=== PATIENT | male | born 1960 | race Caucasian/White ===

== ENCOUNTER 2018-03-12 08:13 | Emergency (ER) | payer OTHER ==
[~2018-03-12] VITALS: Ht 177.8 cm; Wt 104.0 kg
[~2018-03-12 08:13] MED LIST: CARV3.122 PO; CYCL10TA6 PO; HYDR1TAB2 PO; METH4PAK4 PO; OXYC7.5T78 PO; PRLSR20 PO
[2018-03-12 08:17] VITALS: TEMP 36.6; Ht 177.8 cm; Wt 104.0 kg
[2018-03-12] MEDS ORDERED: HYDROCODONE/ACETAMIN 5/325MG TAB PO STA (08:40)
--- NOTE | 2018-03-12 08:46 | EMERGENCY ROOM VISIT NOTE ---
ED Visit Note First contact with patient: 08:25 CHIEF COMPLAINT: Left knee pain HISTORY OF PRESENT ILLNESS: This 57-year-old male presents to ER with chief complaint of left knee pain. The patient is already under the care of orthopedic physician, Dr. Henley from [facility]. He currently has him on steroids. He performed an x-ray and ultrasound and did blood work. He is scheduled for an MRI on Tuesday. He has a follow-up appointment after the MRI with his orthopedic surgeon. The patient is requesting that his MRI be performed today due to the pain. He is currently only taking Aleve twice a day. He is on no other pain medications. He states his pain at rest is 6 out of 10 and with weightbearing it is 10 out of 10. The patient admits to locking of the knee but denies any giving out of the knee. The patient works at [employer] and is on his feet all day. REVIEW OF SYSTEMS: 6 system review was performed and was negative unless stated otherwise in history of present illness. PMH: The patient is healthy; hypertension, appendectomy, GERD SOCIAL HISTORY: Patient lives with his . The patient denies any tobacco or alcohol use. PHYSICAL EXAM: Vital Signs: Were reviewed reviewed Nurse's notes. General: 57- year-old male appears in no acute distress. MENTAL STATUS: Alert, oriented, and cooperative. LEFT KNEE: The affected knee is tender over the medial joint space. Lateral joint space is non-tender.. There is no joint effusion. Patient has full range of motion. Ligament instability noted. EMERGENCY DEPARTMENT COURSE: I discussed with the patient that getting the MRI today is not to move up his course of treatment because he already has a follow- up appointment scheduled with his orthopedic doctor to review his MRI and at that point the orthopedic surgeon will decide whether or not he needs surgery. The patient verbalized understanding. I told him I was willing to provide him pain control for the next several days. He was given [place] 5/325 mg 2 tablets while in the ER. The patient was discharged home in stable condition. DIAGNOSIS: Left knee pain DISCHARGE INSTRUCTIONS: Continue Aleve. Also take [place] 5/325 mg as directed for pain. Do not drive while taking the [place]. Off work for 2 days. Keep scheduled appointment for MRI and follow-up orthopedic appointment. Problem List Medical Problems: (1) Appendectomy Status: Resolved (2) Benign hypertension Status: Chronic Current/Historical Medications Scheduled Carvedilol (Coreg), 3.125 MG PO BID Methylprednisolone Dosepak (Medrol Dosepak), 0 PO DAILY Omeprazole (Prilosec), 20 MG PO DAILY Scheduled PRN Cyclobenzaprine Hcl (Flexeril), 10 MG PO Q8 PRN Hydrocodone/Acetaminophen 5MG/500MG (Lortab 5MG/500MG), 1-2 TABLET PO Q6 PRN Oxycodone/Acetaminophen 5MG/325MG (Percocet 5MG/325MG), 2 TABLETS PO Q6H PRN Allergies Coded Allergies: No Known Allergies (Unverified , 05/23/13) Vital Signs Date Time Temp Pulse Resp B/P (MAP) Pulse Ox O2 Delivery O2 Flow Rate FiO2 03/12/18 08:17 36.6 83 18 165/99 97 Room Air Departure Information Referrals No Doctor, Assigned (PCP) [facility] Instructions [facility]
[2018-03-12] MEDS ORDERED: HYDR-5688 PO (08:47)
[2018-03-12 09:06] VITALS: BP 150/116; PULSE 68; O2SAT 97
== END 2018-03-12 09:31 | disposition home or self-care (01) ==
LOC: C.EDB 08:14 → C.EDA 09:31
DX: M25.562 Pain in left knee (principal); I10 Essential (primary) hypertension; K21.9 Gastro-esophageal reflux disease without esophagitis; Z79.899 Other long term (current) drug therapy